=== PATIENT | female | born 1970 | race Caucasian/White ===

== ENCOUNTER → 2017-01-29 | Outpatient (CLI) | payer OTHER ==
[~2017-01-29] MED LIST: ALLE10TA2 PO; DESM0.2T PO; DESM1TAB4 PO; FERR1TAB8 PO; FLOM5CAP PO; INSUH10VL SQ; JANU100T14 PO; NAME10TA PO; NAPR500T PO; NORCOTAB PO; OMEGCAP2 PO; PROBCAP4 PO; VITA1CAP40 PO; ZOFR4TAB3 PO
--- NOTE | 2017-01-29 15:18 | REPMRS ---
Patient History The patient states she has not had a clinical breast exam in over a year. Family history of unknown cancer in maternal grandmother at age 50 or over. Digital Mammo Screening Bilat: January 29, 2017 - Exam #: [id number] Bilateral CC and MLO view(s) were taken. Technologist: Diann Hughes Technologist Prior study comparison: August 04, 2013, digital mammo diagnostic bilateral performed at [facility]. FINDINGS: There are scattered fibroglandular densities. There is a moderate amount of residual fibroglandular tissue which is fairly symmetric. There is no interval development of dominant mass, architectural distortion, or clustered microcalcification typical of malignancy. There has been no change in the appearance of the mammogram from the prior studies. ASSESSMENT: BI-RADS/ACR category 1 mammogram. Negative. Recommendation Routine screening mammogram of both breasts in 1 year (for women over age 40). This mammogram was interpreted with the aid of an FDA-approved computer-aided dectection system. Electronically Signed By: Rancho Jorge MD 01/29/17 [id number]
== END ==
LOC: M RAD 13:00
PROVIDERS: ATTEND Internal Medicine
DX: Z12.31 Encounter for screening mammogram for malignant neoplasm of breast (principal)

== ENCOUNTER → 2017-03-17 | Outpatient (REF) | payer OTHER ==
[2017-03-17 17:02] LABS: FOLLICLE STIMULATING HORMONE 48.4 mIU/mL; LUTEINIZING HORMONE 42.8 mIU/mL
[2017-03-17 17:19] LABS: ANION GAP 9 MEQ/L (8-16); BLOOD UREA NITROGEN 10 MG/DL (7-18); CALCIUM LEVEL 9.1 MG/DL (8.5-10.1); CARBON DIOXIDE LEVEL 23 MEQ/L (21-32); CHLORIDE LEVEL 120 MEQ/L (98-107); CREATININE FOR GFR 0.67 MG/DL (0.55-1.02); FREE T4 1.02 NG/DL (0.76-1.46); GLOMERULAR FILTRATION RATE > 60.0 (>58); GLUCOSE, FASTING 115 MG/DL (70-105); POTASSIUM SERUM 3.7 MEQ/L (3.5-5.1); SODIUM LEVEL 152 MEQ/L (136-145)
== END ==
LOC: M LAB REF 14:15
PROVIDERS: ATTEND Internal Medicine Endocrinology, Diabetes & Metabolism
DX: E23.2 Diabetes insipidus (principal)

== ENCOUNTER 2017-03-19 13:34 | Emergency (ER) | payer OTHER ==
[~2017-03-19] VITALS: Ht 157.5 cm; Wt 81.8 kg
[2017-03-19] MEDS ORDERED: ALLE10TA2 PO (13:44)
[2017-03-19] MEDS ORDERED: NAME10TA PO (13:44)
[2017-03-19] MEDS ORDERED: INSUH10VL SQ (13:44)
[2017-03-19] MEDS ORDERED: DESM0.2T PO (13:44)
[2017-03-19] MEDS ORDERED: PROBCAP4 PO (13:44)
[2017-03-19] MEDS ORDERED: FERR1TAB8 PO (13:44)
[2017-03-19] MEDS ORDERED: JANU100T14 PO (13:44)
[2017-03-19] MEDS ORDERED: VITA1CAP40 PO (13:44)
[2017-03-19] MEDS ORDERED: OMEGCAP2 PO (13:44)
[2017-03-19] MEDS ORDERED: DESM1TAB4 PO (13:44)
[2017-03-19] MEDS ORDERED: KETOROLAC 30 MG/ML VIAL (J1885) IV ONE (15:00)
[2017-03-19] MEDS ORDERED: ONDANSETRON 4MG/2ML VIAL (J2405) IV ONE (15:00)
[2017-03-19 15:30] LABS: BASO % 0.2 % (0.0-1.0); EOS # 0.1 K/mm3 (0.0-0.50); LARGE UNSTAINED CELL # 0.1 K/mm3 (0.0-0.4); LARGE UNSTAINED CELL % 0.8 % (0.0-4.0); LYMPH # 1.4 K/mm3 (1.5-4.5); LYMPH % 12.9 % (24.0-44.0); MEAN CORPUSCULAR HEMOGLOBIN 28.7 pg (27.0-33.0); MEAN CORPUSCULAR HGB CONC 33.6 g/dl (32.0-36.5); MEAN CORPUSCULAR VOLUME 85.2 fl (80.0-96.0); MONO # 0.3 K/mm3 (0.0-0.8); MONO % 3.2 % (0.0-5.0); NEUTROPHILS # 8.1 K/mm3 (1.8-7.7); PLATELET COUNT, AUTOMATED 194 k/mm3 (150-450); RED CELL DISTRIBUTION WIDTH 14.4 % (11.5-14.5); WHITE BLOOD COUNT 9.9 K/mm3 (4.0-10.0)
[2017-03-19 15:51] LABS: ANION GAP 8 MEQ/L (8-16); BLOOD UREA NITROGEN 8 MG/DL (7-18); CALCIUM LEVEL 9.5 MG/DL (8.5-10.1); CARBON DIOXIDE LEVEL 25 MEQ/L (21-32); CHLORIDE LEVEL 108 MEQ/L (98-107); CREATININE FOR GFR 0.77 MG/DL (0.55-1.02); GLOMERULAR FILTRATION RATE > 60.0 (>58); GLUCOSE, FASTING 173 MG/DL (70-105); POTASSIUM SERUM 3.7 MEQ/L (3.5-5.1); SODIUM LEVEL 141 MEQ/L (136-145)
[2017-03-19 15:53] LABS: CONTROL LINE HCG INT CTR LINE PRESENT
--- NOTE | 2017-03-19 16:59 | REP ---
CT abdomen pelvis without IV or oral contrast: Renal stone protocol. History: Right flank pain, likely stone. No comparison study. Findings: Digital preliminary poultry vaccinator radiograph demonstrates two metallic tubal ligation bands to the left of midline in the pelvis. The bowel gas pattern is normal. On axial CT images, the lung bases are clear. There is mild diffuse fatty infiltration of the liver. No focal hepatic or splenic lesion is seen. The gallbladder is unremarkable. No pancreatic abnormality is seen. No adrenal lesion is observed. There is moderate right-sided hydronephrosis. There is perinephric streaking. There are two calculi in the right ureter. Hydroureter is seen all the way to the distal ureter where there is a 5 mm calculus in the ureterovesical junction. There is periureteral edema. In addition there is a larger calculus at the ureteral pelvic junction on the right measuring 7 mm in diameter. Lastly there is an intrarenal calculus in the lower pole collecting system of the right kidney measuring 3 mm in diameter. On the left there is mild hydronephrosis due to a proximal ureteral 3 mm calculus at the level of the lower pole of the left kidney. No other left ureteral stone is seen. There is an intrarenal calculus in the lower pole left kidney approximately 2 mm in diameter. A normal appendix is seen. No GI tract abnormality is appreciated. No uterine or adnexal abnormality is seen. Impression: 1. Fatty infiltration of the liver. 2. Bilateral intrarenal nephrolithiasis. 3. Bilateral hydronephrosis, moderate on the right and mild on the left. There is a 7 mm stone in the right ureteropelvic junction and a 3 mm stone is seen in the left ureteropelvic junction. A second obstructive distal ureteral calculus is noted in the right ureter at the ureterovesical junction. This calculus measures 5 mm. 4. Patient status post tubal ligation clamp . Signed by Genaro Jorge MD 03/19/2017 05:03 P
[2017-03-19] MEDS ORDERED: FLOM5CAP PO (17:15)
[2017-03-19] MEDS ORDERED: ZOFR4TAB3 PO (17:15)
[2017-03-19] MEDS ORDERED: NORCOTAB PO (17:15)
[2017-03-19] MEDS ORDERED: NAPR500T PO (17:15)
[2017-03-19 17:53] VITALS: BP 135/78
== END 2017-03-19 17:54 | disposition home or self-care (01) ==
LOC: M ED 13:34
DX: N13.2 Hydronephrosis with renal and ureteral calculous obstruction (principal); N20.0 Calculus of kidney; R10.9 Unspecified abdominal pain; R11.2 Nausea with vomiting, unspecified; K76.0 Fatty (change of) liver, not elsewhere classified; E10.9 Type 1 diabetes mellitus without complications; Z79.4 Long term (current) use of insulin; Z79.899 Other long term (current) drug therapy
CPT/HCPCS: 74176; 80048; 81001; 81025; 84703; 85025; 96374; 96375; 99284; J1885; J2405

== ENCOUNTER → 2017-03-31 | Outpatient (REF) | payer OTHER ==
[2017-03-31 16:19] LABS: ANION GAP 10 MEQ/L (8-16); BLOOD UREA NITROGEN 9 MG/DL (7-18); CARBON DIOXIDE LEVEL 25 MEQ/L (21-32); CHLORIDE LEVEL 120 MEQ/L (98-107); CREATININE FOR GFR 0.58 MG/DL (0.55-1.02); GLOMERULAR FILTRATION RATE > 60.0 (>58); GLUCOSE, FASTING 85 MG/DL (70-105); POTASSIUM SERUM 3.5 MEQ/L (3.5-5.1); SODIUM LEVEL 155 MEQ/L (136-145)
== END ==
LOC: M LABDRAW1 13:00
PROVIDERS: ATTEND Internal Medicine Endocrinology, Diabetes & Metabolism
DX: E23.2 Diabetes insipidus (principal)

== ENCOUNTER → 2017-04-30 | Outpatient (REF) | payer OTHER ==
[2017-04-30 13:59] LABS: ANION GAP 9 MEQ/L (8-16); BLOOD UREA NITROGEN 14 MG/DL (7-18); CALCIUM LEVEL 9.1 MG/DL (8.5-10.1); CARBON DIOXIDE LEVEL 27 MEQ/L (21-32); CHLORIDE LEVEL 109 MEQ/L (98-107); CREATININE FOR GFR 0.68 MG/DL (0.55-1.02); GLOMERULAR FILTRATION RATE > 60.0 (>58); GLUCOSE, FASTING 178 MG/DL (70-105); POTASSIUM SERUM 3.6 MEQ/L (3.5-5.1); SODIUM LEVEL 145 MEQ/L (136-145)
== END ==
LOC: M LABDRAW1 11:23
PROVIDERS: ATTEND Internal Medicine Endocrinology, Diabetes & Metabolism
DX: E23.2 Diabetes insipidus (principal)

== ENCOUNTER → 2017-10-29 | Outpatient (REF) | payer MEDICARE, OTHER ==
[2017-10-29 14:23] LABS: ANION GAP 7 MEQ/L (8-16); BLOOD UREA NITROGEN 15 MG/DL (7-18); CALCIUM LEVEL 8.9 MG/DL (8.5-10.1); CARBON DIOXIDE LEVEL 24 MEQ/L (21-32); CHLORIDE LEVEL 115 MEQ/L (98-107); CREATININE FOR GFR 1.07 MG/DL (0.55-1.30); FREE T4 0.93 NG/DL (0.76-1.46); GLOMERULAR FILTRATION RATE 58.8 (>58); GLUCOSE, FASTING 263 MG/DL (70-100); POTASSIUM SERUM 3.9 MEQ/L (3.5-5.1); SODIUM LEVEL 146 MEQ/L (136-145)
== END ==
LOC: M LABDRAW1 13:23
DX: E23.2 Diabetes insipidus (principal); E07.9 Disorder of thyroid, unspecified
CPT/HCPCS: 84439

== ENCOUNTER → 2018-04-29 | Outpatient (REF) | payer MEDICARE, OTHER ==
[2018-04-29 16:34] LABS: BLOOD UREA NITROGEN 18 MG/DL (7-18)
[2018-04-29 16:34] LABS: CREATININE FOR GFR 1.16 MG/DL (0.55-1.30); GLOMERULAR FILTRATION RATE 53.5 (>58)
== END ==
LOC: M LABDRAW1 15:50
DX: I67.1 Cerebral aneurysm, nonruptured (principal); I60.9 Nontraumatic subarachnoid hemorrhage, unspecified
CPT/HCPCS: 82565

== ENCOUNTER → 2018-06-28 | Outpatient (REF) | payer MEDICARE, OTHER ==
[2018-06-28 16:12] LABS: APPEARANCE, URINE CLEAR (CLEAR); BACTERIA, URINE AUTO 1+ (NEGATIVE); BILIRUBIN, URINE AUTO NEGATIVE (NEGATIVE); BLOOD, URINE BLOOD NEGATIVE (NEGATIVE); COLOR, URINE YELLOW (YELLOW); GLUCOSE, URINE (UA) AUTO NEGATIVE (NEGATIVE); KETONE, URINE AUTO NEGATIVE (NEGATIVE); LEUKOCYTE ESTERASE, URINE AUTO NEGATIVE (NEGATIVE); MUCUS, URINE SMALL (NEGATIVE); NITRITE, URINE AUTO NEGATIVE (NEGATIVE); PROTEIN, URINE AUTO NEGATIVE (NEGATIVE); RBC, URINE AUTO 0 /HPF (0-3); SPECIFIC GRAVITY URINE AUTO 1.012 (1.002-1.035); SQUAMOUS EPITHELIAL CELL UR AU 4 /HPF (0-6); UROBILINOGEN, URINE AUTO 0.2 mg/dL (0.0-2.0); WBC, URINE AUTO 2 /HPF (0-3)
[2018-06-28 16:18] LABS: OSMOLALITY SERUM 314 MOSM/KG (275-295); OSMOLALITY URINE 493 MOSM/KG (500-800)
[2018-06-28 16:23] LABS: ANION GAP 6 MEQ/L (8-16); BLOOD UREA NITROGEN 15 MG/DL (7-18); CALCIUM LEVEL 8.9 MG/DL (8.5-10.1); CARBON DIOXIDE LEVEL 27 MEQ/L (21-32); CHLORIDE LEVEL 116 MEQ/L (98-107); GLOMERULAR FILTRATION RATE > 60.0 (>58); GLUCOSE, FASTING 107 MG/DL (70-100); POTASSIUM SERUM 3.5 MEQ/L (3.5-5.1); SODIUM LEVEL 149 MEQ/L (136-145)
== END ==
LOC: M LABDRAW1 14:33
DX: E23.2 Diabetes insipidus (principal)
CPT/HCPCS: 83930

== ENCOUNTER → 2018-09-22 | Outpatient (REF) | payer MEDICARE, OTHER ==
[~2018-09-22] MED LIST changes: +DESM0.1T2 PO; -DESM0.2T PO; +DESM0.2T10 PO; -DESM1TAB4 PO; +FLOM0.4C39 PO; -FLOM5CAP PO; +NAPR-50 PO; -NAPR500T PO; -VITA1CAP40 PO; +VITA50005 PO; +ZOFR4TAB14 PO; -ZOFR4TAB3 PO
== END ==
LOC: M LABDRAW1 15:41
PROVIDERS: ATTEND Internal Medicine Endocrinology, Diabetes & Metabolism
DX: Z53.9 Procedure and treatment not carried out, unspecified reason (principal); E23.2 Diabetes insipidus

== ENCOUNTER → 2018-09-22 | Outpatient (REF) | payer MEDICARE, OTHER ==
[2018-09-22 16:24] LABS: BLOOD UREA NITROGEN 12 MG/DL (7-18); CALCIUM LEVEL 8.5 MG/DL (8.5-10.1); CARBON DIOXIDE LEVEL 26 MEQ/L (21-32); CHLORIDE LEVEL 112 MEQ/L (98-107); CREATININE FOR GFR 0.88 MG/DL (0.55-1.30); GLOMERULAR FILTRATION RATE > 60.0 (>58); GLUCOSE, FASTING 99 MG/DL (70-100); POTASSIUM SERUM 3.6 MEQ/L (3.5-5.1); SODIUM LEVEL 148 MEQ/L (136-145)
[2018-09-22 16:26] LABS: OSMOLALITY SERUM 309 MOSM/KG (275-295)
== END ==
LOC: M LABDRAW1 15:45
PROVIDERS: ATTEND Internal Medicine Endocrinology, Diabetes & Metabolism
DX: E23.2 Diabetes insipidus (principal)

== ENCOUNTER 2018-10-20 09:55 | Emergency (ER) | payer MEDICARE, OTHER ==
[~2018-10-20] VITALS: Ht 162.6 cm; Wt 79.4 kg
[~2018-10-20 09:55] MED LIST changes: -ALLE10TA2 PO; +HYDR-3715 PO; +LORA-753 PO; -NAPR-50 PO; +NAPR-837 PO; -NORCOTAB PO
[2018-10-20 09:56] VITALS: BP 124/70
[2018-10-20 10:46] LABS: APPEARANCE, URINE MANUAL CLOUDY (CLEAR); COLOR, URINE MANUAL BROWN (YELLOW)
[2018-10-20 10:47] LABS: BILIRUBIN, URINE MANUAL OBSCURED (NEGATIVE); GLUCOSE, URINE (UA) MANUAL NEGATIVE (NEGATIVE); KETONE, URINE MANUAL OBSCURED mg/dL (NEGATIVE); PROTEIN, URINE MANUAL 2+ mg/dL (NEGATIVE); UROBILINOGEN, URINE MANUAL OBSCURED mg/dl (NORMAL)
[2018-10-20 10:48] LABS: BLOOD URINE MANUAL POSITIVE (NEGATIVE); LEUKOCYTE ESTERASE, URINE MAN POSITIVE (NEGATIVE); NITRITE, URINE MANUAL POSITIVE (NEGATIVE)
[2018-10-20 11:13] LABS: BACTERIA, URINE SMALL AMOUNT; HYALINE CAST, URINE NONE SEEN /lpf (0-1); RBC, URINE TNTC /hpf (0-3); RENAL EPITHELIAL CELLS, URINE SMALL AMOUNT /hpf; SQUAMOUS EPITHELIAL CELL URINE SMALL AMOUNT /hpf (SMALL AMT)
[2018-10-20 11:35] LABS: HEMATOCRIT 41.4 % (36.0-47.0); MEAN CORPUSCULAR HEMOGLOBIN 29.2 pg (27.0-33.0); MEAN CORPUSCULAR HGB CONC 31.4 g/dl (32.0-36.5); PLATELET COUNT, AUTOMATED 155 10^3/uL (150-450); RED BLOOD COUNT 4.45 10^6/uL (4.00-5.40); WHITE BLOOD COUNT 8.5 10^3/uL (4.0-10.0)
--- NOTE | 2018-10-20 12:00 | REP ---
CT ABDOMEN AND PELVIS WITHOUT IV OR ORAL CONTRAST: HISTORY: Hematuria. Rule out stone. COMPARISON STUDY: March 19, 2017. CT FINDINGS: Preliminary digital digester hand radiograph demonstrates tubal ligation clamps in the pelvis and a normal bowel gas pattern. The lung bases are clear. There is fatty infiltration of the liver. The liver is not enlarged. No focal liver lesion is seen. There is some fat sparing near the gallbladder. No abnormality is noted in the gallbladder. The spleen is normal in size homogeneous in texture. No adrenal lesion is seen on either side. No pancreatic abnormality is observed. There is bilateral intrarenal nephrolithiasis. There is a 3 mm intrarenal calculus in the lower pole left kidney. The right kidney contains a lower pole 6 mm calculus as well as a smaller 2-3 mm calculus. The right kidney is quite atrophic on today's CT study measuring 7.9 cm in length. The left kidney measures 10.2 cm in length. There is moderate left-sided hydronephrosis due to a left proximal ureteral stone seen in place at the level of the lower pole of the left kidney. This calculus measures 6 mm. There is periureteral edema associated with this obstructive calculus. No other ureteral calculus is seen. No uterine or ovarian abnormality is seen. No bladder calculus is seen. There is mild left colonic diverticulosis. Small and large intestinal bowel loops are otherwise unremarkable. No abdominal wall defect is seen. IMPRESSION: Bilateral intrarenal nephrolithiasis. Significant atrophy has developed in the right kidney. There is moderate hydronephrosis and hydroureter on the left today due to an obstructing 6 mm proximal ureteral stone on the left. Electronically Signed by Genaro Jorge MD 10/20/2018 12:17 P
[2018-10-20 12:02] LABS: ALBUMIN 3.5 GM/DL (3.2-5.2); BILIRUBIN,DIRECT 0.1 MG/DL (0.0-0.2); BILIRUBIN,TOTAL 0.5 MG/DL (0.2-1.0); CALCIUM LEVEL 8.6 MG/DL (8.5-10.1); CREATININE FOR GFR 1.07 MG/DL (0.55-1.30); GLOMERULAR FILTRATION RATE 58.5 (>58); POTASSIUM SERUM 3.6 MEQ/L (3.5-5.1)
[2018-10-20] MEDS ORDERED: CIPR-249 PO (12:16)
[2018-10-20] MEDS ORDERED: CIPROFLOXACIN 500 MG TAB PO ONE (12:30)
== END 2018-10-20 12:33 | disposition home or self-care (01) ==
LOC: M ED 09:55
DX: N20.0 Calculus of kidney (principal); K76.0 Fatty (change of) liver, not elsewhere classified; E11.9 Type 2 diabetes mellitus without complications; R87.810 Cervical high risk human papillomavirus (HPV) DNA test positive; Z86.69 Personal history of other diseases of the nervous system and sense organs; Z87.891 Personal history of nicotine dependence; Z84.2 Family history of other diseases of the genitourinary system; Z79.899 Other long term (current) drug therapy

== ENCOUNTER → 2020-04-24 | Outpatient (CLI) | payer MEDICARE, OTHER ==
[~2020-04-24] MED LIST changes: +CIPR-249 PO
[2020-04-24 13:54] LABS: HEMATOCRIT 46.9 % (36.0-47.0); HEMOGLOBIN 14.3 g/dl (12.0-15.5); MEAN CORPUSCULAR HEMOGLOBIN 29.4 pg (27.0-33.0); MEAN CORPUSCULAR HGB CONC 30.5 g/dl (32.0-36.5); MEAN CORPUSCULAR VOLUME 96.5 fl (80.0-96.0); PLATELET COUNT, AUTOMATED 191 10^3/uL (150-450); RED BLOOD COUNT 4.86 10^6/uL (4.00-5.40); WHITE BLOOD COUNT 8.1 10^3/uL (4.0-10.0)
[2020-04-24 14:30] LABS: CALCIUM LEVEL 9.5 MG/DL (8.5-10.1); CREATININE FOR GFR 1.08 MG/DL (0.55-1.30); GLOMERULAR FILTRATION RATE 57.6 (>58); PERCENT SATURATION 17.3 % (13.2-45.0); POTASSIUM SERUM 3.9 MEQ/L (3.5-5.1)
== END ==
LOC: M PLALAB 11:56
PROVIDERS: ATTEND Internal Medicine Endocrinology, Diabetes & Metabolism
DX: E11.65 Type 2 diabetes mellitus with hyperglycemia (principal); D64.9 Anemia, unspecified

== ENCOUNTER → 2020-09-02 | Outpatient (CLI) | payer MEDICARE, OTHER ==
[2020-09-02 15:23] LABS: OSMOLALITY SERUM 311 MOSM/KG (275-295)
[2020-09-02 15:45] LABS: BLOOD UREA NITROGEN 17 MG/DL (7-18); CALCIUM LEVEL 9.7 MG/DL (8.5-10.1); CARBON DIOXIDE LEVEL 28 MEQ/L (21-32); CHLORIDE LEVEL 114 MEQ/L (98-107); CREATININE FOR GFR 0.89 MG/DL (0.55-1.30); GLOMERULAR FILTRATION RATE > 60.0 (>58); GLUCOSE, FASTING 102 MG/DL (70-100); SODIUM LEVEL 150 MEQ/L (136-145)
== END ==
LOC: M PLALAB 12:21
PROVIDERS: ATTEND Internal Medicine Endocrinology, Diabetes & Metabolism
DX: E11.65 Type 2 diabetes mellitus with hyperglycemia (principal)

== ENCOUNTER → 2020-12-04 | Outpatient (CLI) | payer MEDICARE, OTHER ==
[2020-12-04 13:48] LABS: OSMOLALITY SERUM 316 MOSM/KG (275-295)
[2020-12-04 14:24] LABS: BLOOD UREA NITROGEN 15 MG/DL (7-18); CALCIUM LEVEL 9.6 MG/DL (8.5-10.1); CARBON DIOXIDE LEVEL 25 MEQ/L (21-32); CHLORIDE LEVEL 118 MEQ/L (98-107); CREATININE FOR GFR 1.01 MG/DL (0.55-1.30); GLOMERULAR FILTRATION RATE > 60.0 (>58); GLUCOSE, FASTING 113 MG/DL (70-100); POTASSIUM SERUM 3.9 MEQ/L (3.5-5.1); SODIUM LEVEL 151 MEQ/L (136-145)
== END ==
LOC: M PLALAB 09:17
PROVIDERS: ATTEND Internal Medicine Endocrinology, Diabetes & Metabolism
DX: E11.65 Type 2 diabetes mellitus with hyperglycemia (principal)

== ENCOUNTER → 2022-02-12 | Outpatient (CLI) | payer MEDICARE, OTHER ==
[2022-02-12 14:29] LABS: CALCIUM LEVEL 9.8 MG/DL (8.5-10.1); CREATININE FOR GFR 1.16 MG/DL (0.55-1.30); GLOMERULAR FILTRATION RATE 52.6 (>51); POTASSIUM SERUM 4.1 MEQ/L (3.5-5.1)
== END ==
LOC: M PLALAB 10:53
PROVIDERS: ATTEND Internal Medicine Endocrinology, Diabetes & Metabolism
DX: E23.2 Diabetes insipidus (principal)

== ENCOUNTER → 2022-09-18 | Outpatient (CLI) | payer MEDICARE, OTHER ==
[2022-09-18 16:50] LABS: URIC ACID 8.2 MG/DL (3.1-7.8)
[2022-09-18 16:53] LABS: BLOOD UREA NITROGEN 15 MG/DL (9-23); CALCIUM LEVEL 9.7 MG/DL (8.5-10.1); CARBON DIOXIDE LEVEL 26 MMOL/L (20-31); CHLORIDE LEVEL 109 MMOL/L (98-107); CREATININE FOR GFR 0.85 MG/DL (0.55-1.30); GLOMERULAR FILTRATION RATE > 60.0 (>51); GLUCOSE, FASTING 96 MG/DL (60-100); PHOSPHORUS LEVEL 4.1 MG/DL (2.5-4.9); POTASSIUM SERUM 3.9 MMOL/L (3.5-5.1); SODIUM LEVEL 145 MMOL/L (136-145)
== END ==
LOC: M WUC 12:02
PROVIDERS: ATTEND Physician Assistant
DX: M79.671 Pain in right foot (principal); L03.031 Cellulitis of right toe

== ENCOUNTER → 2022-10-19 | Outpatient (CLI) | payer MEDICARE, OTHER ==
[~2022-10-19] MED LIST changes: +DESM0.1T16 PO; -DESM0.1T2 PO; -DESM0.2T10 PO; +DESM0.2T22 PO
[2022-10-19 16:18] LABS: ALBUMIN 4.1 G/DL (3.2-5.2); ALKALINE PHOSPHATASE 107 U/L (46-116); ALT/SGPT 72 U/L (7.0-40); AST/SGOT 40 U/L (<34); BILIRUBIN,TOTAL 0.5 MG/DL (0.3-1.2); BLOOD UREA NITROGEN 16 MG/DL (9-23); CALCIUM LEVEL 9.4 MG/DL (8.5-10.1); CARBON DIOXIDE LEVEL 26 MMOL/L (20-31); CHLORIDE LEVEL 114 MMOL/L (98-107); CREATININE FOR GFR 0.87 MG/DL (0.55-1.30); GLOMERULAR FILTRATION RATE > 60.0 (>51); GLUCOSE, FASTING 82 MG/DL (60-100); SODIUM LEVEL 147 MMOL/L (136-145); TOTAL PROTEIN 7.2 G/DL (5.7-8.2)
[2022-10-19 16:41] LABS: OSMOLALITY SERUM 308 MOSM/KG (275-295)
== END ==
LOC: M PLALAB 14:01
PROVIDERS: ATTEND Internal Medicine Endocrinology, Diabetes & Metabolism
DX: E23.2 Diabetes insipidus (principal)

== ENCOUNTER → 2022-11-26 | Outpatient (CLI) | payer MEDICARE, OTHER ==
[2022-11-26 17:38] LABS: URIC ACID 8.6 MG/DL (3.1-7.8)
[2022-11-26 17:41] LABS: BLOOD UREA NITROGEN 17 MG/DL (9-23); CALCIUM LEVEL 8.8 MG/DL (8.5-10.1); CARBON DIOXIDE LEVEL 22 MMOL/L (20-31); CHLORIDE LEVEL 111 MMOL/L (98-107); GLOMERULAR FILTRATION RATE > 60.0 (>51); GLUCOSE, FASTING 164 MG/DL (60-100); POTASSIUM SERUM 3.7 MMOL/L (3.5-5.1); SODIUM LEVEL 143 MMOL/L (136-145)
== END ==
LOC: M WUC 11:32
PROVIDERS: ATTEND Student in an Organized Health Care Education/Training Program
DX: M79.671 Pain in right foot (principal)

== ENCOUNTER → 2023-01-08 | Outpatient (CLI) | payer MEDICARE, OTHER ==
[2023-01-08 13:09] LABS: BASO % 0.4 % (0.0-1.0); EOS # 0.2 10^3/uL (0.0-0.5); EOS % 2.3 % (0.0-3.0); HEMOGLOBIN 14.1 g/dl (12.0-15.5); LYMPH # 2.5 10^3/uL (1.5-5.0); LYMPH % 25.3 % (24.0-44.0); MEAN CORPUSCULAR HEMOGLOBIN 29.6 pg (27.0-33.0); MEAN CORPUSCULAR HGB CONC 31.3 g/dl (32.0-36.5); MEAN CORPUSCULAR VOLUME 94.5 fl (80.0-96.0); MONO # 0.4 10^3/uL (0.0-0.8); NEUTROPHILS # 6.7 10^3/uL (1.5-8.5); NEUTROPHILS % 67.4 % (36.0-66.0); PLATELET COUNT, AUTOMATED 162 10^3/uL (150-450); RED BLOOD COUNT 4.76 10^6/uL (4.00-5.40); WHITE BLOOD COUNT 9.9 10^3/uL (4.0-10.0)
[2023-01-08 13:34] LABS: URIC ACID 7.9 MG/DL (3.1-7.8)
[2023-01-08 13:38] LABS: ALBUMIN 3.7 G/DL (3.2-5.2); ALKALINE PHOSPHATASE 107 U/L (46-116); ALT/SGPT 42 U/L (7.0-40); AST/SGOT < 8 U/L (<34); BILIRUBIN,TOTAL 0.5 MG/DL (0.3-1.2); BLOOD UREA NITROGEN 17 MG/DL (9-23); CALCIUM LEVEL 8.6 MG/DL (8.5-10.1); CARBON DIOXIDE LEVEL 22 MMOL/L (20-31); CHLORIDE LEVEL 115 MMOL/L (98-107); CREATININE FOR GFR 0.88 MG/DL (0.55-1.30); GLOMERULAR FILTRATION RATE > 60.0 (>51); GLUCOSE, FASTING 113 MG/DL (60-100); POTASSIUM SERUM 3.7 MMOL/L (3.5-5.1); SODIUM LEVEL 146 MMOL/L (136-145); TOTAL PROTEIN 6.4 G/DL (5.7-8.2)
== END ==
LOC: M WUC 11:45
PROVIDERS: ATTEND Nurse Practitioner Family
DX: M79.671 Pain in right foot (principal); M10.271 Drug-induced gout, right ankle and foot

== ENCOUNTER → 2023-04-16 | Outpatient (CLI) | payer MEDICARE, OTHER ==
[2023-04-16 16:41] LABS: BLOOD UREA NITROGEN 18 MG/DL (9-23); CALCIUM LEVEL 9.5 MG/DL (8.5-10.1); CARBON DIOXIDE LEVEL 24 MMOL/L (20-31); CHLORIDE LEVEL 117 MMOL/L (98-107); CREATININE FOR GFR 0.88 MG/DL (0.55-1.30); GLOMERULAR FILTRATION RATE > 60.0 (>51); GLUCOSE, FASTING 125 MG/DL (60-100); POTASSIUM SERUM 3.6 MMOL/L (3.5-5.1); SODIUM LEVEL 151 MMOL/L (136-145)
[2023-04-16 16:49] LABS: OSMOLALITY SERUM 314 MOSM/KG (275-295)
== END ==
LOC: M PLALAB 13:59
PROVIDERS: ATTEND Internal Medicine Endocrinology, Diabetes & Metabolism
DX: E11.65 Type 2 diabetes mellitus with hyperglycemia (principal)

== ENCOUNTER → 2023-10-13 | Outpatient (CLI) | payer MEDICARE, OTHER ==
[2023-10-13 18:24] LABS: BLOOD UREA NITROGEN 22 MG/DL (9-23); CALCIUM LEVEL 9.6 MG/DL (8.5-10.1); CARBON DIOXIDE LEVEL 23 MMOL/L (20-31); CHLORIDE LEVEL 117 MMOL/L (98-107); GLOMERULAR FILTRATION RATE > 60.0 (>51); GLUCOSE, FASTING 110 MG/DL (60-100); POTASSIUM SERUM 3.8 MMOL/L (3.5-5.1); SODIUM LEVEL 150 MMOL/L (136-145)
[2023-10-13 18:53] LABS: CREATININE, URINE 122.4 MG/DL; MAU/CREAT RATIO 7.3 MCG/MG (0.0-30.0)
== END ==
LOC: M PLALAB 15:11
PROVIDERS: ATTEND Internal Medicine Endocrinology, Diabetes & Metabolism
DX: E11.65 Type 2 diabetes mellitus with hyperglycemia (principal)

== ENCOUNTER → 2024-05-11 | Outpatient (CLI) | payer MEDICARE, OTHER ==
[2024-05-11 16:32] LABS: CREATININE, URINE 109.5 MG/DL
[2024-05-11 16:33] LABS: ALBUMIN 3.8 G/DL (3.2-5.2); ALKALINE PHOSPHATASE 105 U/L (46-116); ALT/SGPT 73 U/L (7.0-40); AST/SGOT 41 U/L (<34); BILIRUBIN,TOTAL 0.6 MG/DL (0.3-1.2); BLOOD UREA NITROGEN 14 MG/DL (9-23); CALCIUM LEVEL 9.5 MG/DL (8.5-10.1); CARBON DIOXIDE LEVEL 24 MMOL/L (20-31); CHLORIDE LEVEL 116 MMOL/L (98-107); CREATININE FOR GFR 0.85 MG/DL (0.55-1.30); GLOMERULAR FILTRATION RATE > 60.0 (>51); GLUCOSE, FASTING 111 MG/DL (60-100); MAU/CREAT RATIO 6.3 MCG/MG (0.0-30.0); POTASSIUM SERUM 3.9 MMOL/L (3.5-5.1); SODIUM LEVEL 148 MMOL/L (136-145); TOTAL PROTEIN 7.1 G/DL (5.7-8.2)
[2024-05-11 17:00] LABS: OSMOLALITY SERUM 313 MOSM/KG (275-295)
== END ==
LOC: M PLALAB 12:57
PROVIDERS: ATTEND Internal Medicine Endocrinology, Diabetes & Metabolism
DX: E11.65 Type 2 diabetes mellitus with hyperglycemia (principal)